=== PATIENT | female | born 1995 | race Asian ===

== ENCOUNTER → 2023-08-25 | Outpatient (CLI) | payer BC ==
[2023-08-26 02:58] LABS: Insulin Level 12.8 mIU/mL (3.0-25.0)
[2023-08-26 03:39] LABS: ALT 37 U/L (8-44); AST 21 U/L (13-35); Albumin 4.3 d/dL (3.8-4.9); Albumin/Globulin Ratio 1.39 Ratio (1.60-3.17); Alkaline Phosphatase 53 U/L (41-126); BUN/Creat Ratio 20.57 Ratio (12.00-20.00); Blood Urea Nitrogen 14.4 mg/dL (9.0-27.0); Calcium 9.6 mg/dL (8.7-10.3); Carbon Dioxide 21.5 mmol/L (21.6-31.8); Chloride 105 mmol/L (96-109); Chol/HDL Ratio 4.45 Ratio; Globulin 3.1 d/dL (1.6-3.3); Glucose 83 mg/dL (70-110); Hepatitis C IgG Antibody Nonreactive; LDL Cholesterol,Calculated 98.8 mg/dL (0.0-131.0); Sodium 141 mmol/L (135-145); Total Bilirubin 0.5 mg/dL (0.3-1.2); Total Protein 7.4 d/dL (6.2-8.2); VLDL Calculation 18.28 mg/dL (5.00-40.00)
[2023-08-26 03:40] LABS: Follicle Stimulating Hormone 5.5 mIU/mL
[2023-08-26 03:49] LABS: HIV 2 AB Non-Reactive (Non-Reactive); HIV AB P24 Non-Reactive (Non-Reactive); HIV P24 AG Non-Reactive (Non-Reactive)
== END | disposition home or self-care (01) ==
LOC: LABWHC1 14:21
PROVIDERS: ATTEND Obstetrics & Gynecology Reproductive Endocrinology
DX: Z01.84 Encounter for antibody response examination (principal); Z13.29 Encounter for screening for other suspected endocrine disorder; Z11.3 Encounter for screening for infections with a predominantly sexual mode of transmission; Z11.4 Encounter for screening for human immunodeficiency virus [HIV]; Z13.1 Encounter for screening for diabetes mellitus; Z13.220 Encounter for screening for lipoid disorders; Z11.59 Encounter for screening for other viral diseases; N97.9 Female infertility, unspecified; E28.9 Ovarian dysfunction, unspecified; D68.51 Activated protein C resistance; E55.9 Vitamin D deficiency, unspecified
CPT/HCPCS: 36415; 80053; 80061; 82306; 82627; 83001; 83036; 83498; 83525; 84443; 86762; 86780; 86787; 86803; 86900; 86901; 87390